=== PATIENT | male | born 1975 | race Caucasian/White ===

== ENCOUNTER 2024-09-04 07:35 | Outpatient (OUT) | payer BC, SELFPAY ==
--- NOTE | 2024-09-04 | PCN_ITS ---
CARDIAC STRESS TEST Requesting Physician: Procedure Date: 09/04/2024 TREADMILL EKG STRESS TEST INDICATION FOR THE TEST: Chest and shortness of breath. The test was discussed with the patient, including details, risks and benefits and he was agreeable. Resting heart rate 71 beats per minute, resting blood pressure 155/91. Resting EKG normal. The patient was exercised according to standard Chris protocol, and he was able to finish 12 minutes and 49 seconds, achieving 13.4 max METS and maximal heart rate of 150 beats per minute, which represents 86% of age predicted maximum heart rate. Max blood pressure 194/90. The patient experienced shortness of breath but no chest pain. He was also dizzy when the treadmill was stopped and resolved in recovery. Patient was monitored for 10 minutes into recovery phase, with heart rate down to 106 beats per minute, and blood pressure 144/86 mm/Hg. EKG during exercise, at peak exercise, and during recovery phase did not show significant T or ST changes or significant arrhythmias. CONCLUSIONS: 1. Maximal stress test achieving 86% of age predicted maximum heart rate. 2. Appropriate heart rate and blood pressure response to exercise. 3. This stress test is negative for exercise induced ischemic symptoms, EKG changes or arrhythmias. 4. Nuclear perfusion images result will be reported separately. [facility]
--- NOTE | 2024-09-04 07:45 | NM_ITS ---
Patient Name: MARY DEL TORO MR#: [id number] : 1975 Exam Date: 09/04/2024 Ordering Doctor: DR KIRSTEN BELLO RADIOLOGY REPORT PROCEDURE: NM TYREL PERF SPECT REST STR COMPARISON: None. INDICATIONS: CHEST PAIN, DYSPNEA ON EXERTION, FAMILY HISTORY TECHNIQUE: Exam Description: Rest/Stress one day protocol gated SPECT Rest Imagin.9 mCi Tc-99m Cardiolite IV on 09/04/2024 Stress Imaging 31.0 mCi Tc-99m Cardiolite IV on 09/04/2024 Exercise Protocol: 0.4 mg Lexiscan given IV Heart Rate (bpm): Rest: 71 Max: 150 PMHR: 86 Blood Pressure: Rest: 135/91 Max: 194/90 Symptoms: Rest and peak stress ECG findings were pending and the exercise portion of the study was pending per attending physician [facility] [place] . For more details please see separate cardiac stress test report. FINDINGS: QUALITY OF STUDY: Good PERFUSION DEFECT: LOCATION: Mid and basal inferior segments SIZE: Moderate SEVERITY: Mild TYPE: Fixed with normal contractility and thickening C/W diaphragmatic attenuation WALL MOTION: LV SIZE: LVEDV 98 mL. TID / TCD: 0.7 LVEF: Calculated EF 65%. SUMMARY: Normal Myocardial perfusion imaging study CONCLUSION: Normal nuclear perfusion study without ischemia or infarct Normal left ventricle function, EF 65% No transient ischemia dilatation, TID 0.7 EKG stress test is reported separately Dictated by: Valencia Seymour MD on 09/04/2024 at 18:57 Approved by: Valencia Seymour MD on 09/04/2024 at 19:06
== END 2024-09-04 07:36 | disposition home or self-care (01) ==
LOC: NM 07:35
PROVIDERS: PCP Physician Assistant; Visit Provider Physician Assistant
DX: R06.09 Other forms of dyspnea (principal); I10 Essential (primary) hypertension; R07.9 Chest pain, unspecified; Z82.49 Family history of ischemic heart disease and other diseases of the circulatory system; Z87.891 Personal history of nicotine dependence
CPT/HCPCS: 78452; 93017; A9500